=== PATIENT | male | born 1990 | race African-American/Black ===

== ENCOUNTER 2022-08-21 21:24 | Emergency (ER) | payer BC, OTHER ==
[2022-08-21 21:38] VITALS: RESP 18; TEMP 99.8; BMI 28.5
[2022-08-21] MEDS ORDERED: TOBRAMYCIN 0.3% OPHTH SOLN 5 ML BOTTLE OD ONE (21:57)
[2022-08-21] MEDS ORDERED: TOBRAMYCIN 0.3% OPHTH SOLN 5 ML BOTTLE ONE (22:11)
[2022-08-21] MEDS ORDERED: metFORMIN HCL 500 MG TABLET (FP) PO ONE (22:20)
[2022-08-21] MEDS ORDERED: metFORMIN HCL 500 MG TABLET (FP) ONE (22:38)
[2022-08-21] MEDS ORDERED: SODIUM CHLORIDE 1,000 ML IV ONE (22:54)
[2022-08-21 23:27] LABS: ALBUMIN 3.6 g/dl (3.4-5.0); BILIRUBIN,TOTAL 1.4 mg/dl (0.2-1); CREATININE 1.1 mg/dl (0.55-1.3); TOT PROT 7.2 g/dl (6.4-8.2)
[2022-08-21] MEDS ORDERED: INSULIN REGULAR HUMAN 100 UNITS/ML *VIAL IVPUSH ONE (23:36)
[2022-08-21] MEDS ORDERED: INSULIN REGULAR HUMAN 100 UNITS/ML *VIAL ONE (23:46)
[2022-08-22 00:48] VITALS: BP 157/98; PULSE 112
== END 2022-08-22 00:42 | disposition home or self-care (01) ==
LOC: FER 21:24
PROC: 3E033GC Introduction of Other Therapeutic Substance into Peripheral Vein, Percutaneous Approach (ICD-10-PCS; principal; 2022-08-21)
DX: U07.1 COVID-19 (principal); H10.9 Unspecified conjunctivitis; E11.65 Type 2 diabetes mellitus with hyperglycemia
CPT/HCPCS: 36415; 80053; 82962; 99284-25